=== PATIENT | female | born 1975 | race Asian ===

== ENCOUNTER 2016-07-28 10:42 | Emergency (ER) | payer SELFPAY ==
[~2016-07-28] VITALS: Ht 162.6 cm; Wt 63.6 kg
[2016-07-28 10:58] VITALS: BP 170/100
== END 2016-07-28 13:10 | disposition left against medical advice (07) ==
LOC: EMS 10:44
DX: I10 Essential (primary) hypertension (principal); R51 Headache; Z53.21 Procedure and treatment not carried out due to patient leaving prior to being seen by health care provider